=== PATIENT | female | born 1955 | race Hispanic/Latino ===

== ENCOUNTER → 2018-01-03 | Outpatient (CLI) | payer OTHER | END | disposition home or self-care (01) | LOC: RAH 13:49 | PROVIDERS: ATTEND Internal Medicine Cardiovascular Disease | DX: Z13.6 Encounter for screening for cardiovascular disorders (principal) | CPT/HCPCS: 75571 ==

== ENCOUNTER → 2018-01-18 | Outpatient (CLI) | payer BC ==
[~2018-01-18] MED LIST: REGADENOSON 0.4 MG/5 ML PF SYG IVP SCH
== END | disposition home or self-care (01) ==
LOC: SHCH 08:44
PROVIDERS: ATTEND Internal Medicine Cardiovascular Disease
DX: I10 Essential (primary) hypertension (principal)
CPT/HCPCS: 78452; 93017; 96374; A9500 ×2; J2785

== ENCOUNTER → 2018-10-18 | Outpatient (CLI) | payer BC | END | disposition home or self-care (01) | LOC: RAH 11:04 | PROVIDERS: ATTEND Family Medicine | DX: I77.1 Stricture of artery (principal); R20.8 Other disturbances of skin sensation | CPT/HCPCS: 93880 ==

== ENCOUNTER → 2022-04-11 | Outpatient (CLI) | payer OTHER | END | disposition home or self-care (01) | LOC: SHCH 09:58 | PROVIDERS: ATTEND Internal Medicine Cardiovascular Disease | DX: I07.1 Rheumatic tricuspid insufficiency (principal); R06.00 Dyspnea, unspecified; R07.9 Chest pain, unspecified | CPT/HCPCS: 93306 ==

== ENCOUNTER → 2022-04-11 | Outpatient (CLI) | payer OTHER ==
[2022-04-11 16:29] LABS: ALBUMIN 3.6 g/dL (3.5-5.0); POTASSIUM 3.8 mmol/L (3.5-5.1); TOTAL PROTEIN, SERUM 7.5 g/dL (6.0-8.3)
== END | disposition home or self-care (01) ==
LOC: LAB 13:46
PROVIDERS: ATTEND Internal Medicine Cardiovascular Disease
DX: I10 Essential (primary) hypertension (principal)
CPT/HCPCS: 36415; 80053

== ENCOUNTER → 2022-04-12 | Outpatient (CLI) | payer OTHER ==
[~2022-04-12] MED LIST changes: +IOHEXOL-350 50ML VIAL IV ONE; +METOPROLOL TARTRATE 1 MG/ML 5ML VIAL IV ONE; -REGADENOSON 0.4 MG/5 ML PF SYG IVP SCH
== END | disposition home or self-care (01) ==
LOC: RAH 08:29
PROVIDERS: ATTEND Internal Medicine Cardiovascular Disease
DX: M47.815 Spondylosis without myelopathy or radiculopathy, thoracolumbar region (principal); K44.9 Diaphragmatic hernia without obstruction or gangrene; R07.9 Chest pain, unspecified
CPT/HCPCS: 75574; J3490; Q9967

== ENCOUNTER 2022-09-13 13:09 | Emergency (ER) | payer OTHER ==
[~2022-09-13] VITALS: Ht 152.4 cm; Wt 79.4 kg
[2022-09-13 13:42] LABS: APPEARANCE,URINE CLEAR (CLEAR); BILIRUBIN,URINE NEGATIVE (NEGATIVE); COLOR,URINE LIGHT-YELLOW (YELLOW); GLUCOSE, URINE (UA) NEGATIVE (NEGATIVE); KETONES,URINE NEGATIVE (NEGATIVE); LEUKOCYTE ESTERASE ,URINE 25 Leu/uL (NEGATIVE); NITRATE,URINE NEGATIVE (NEGATIVE); PROTEIN,URINE NEGATIVE (NEGATIVE); UROBILINOGEN,URINE 0.2 mg/dL (0.2-1.0)
[2022-09-13 13:43] LABS: BASOPHILS % (AUTO) 0.3 % (0.0-5.0); EOSINOPHILS % (AUTO) 1.2 % (0.0-8.0); HEMATOCRIT 36.4 % (36-48); LYMPHOCYTES % (AUTO) 21.3 % (21.0-51.0); MEAN CORPUSCULAR HEMOGLOBIN 29.8 pg (27.0-33.0); MEAN CORPUSCULAR HGB CONC 33.8 g/dL (32.0-36.0); MEAN CORPUSCULAR VOLUME 88.1 fL (79-99); MONOCYTES % (AUTO) 5.2 % (3.0-13.0); NEUTROPHILS % (AUTO) 71.7 % (40.0-77.0); PLATELET COUNT (AUTO) 197 K/uL (130-400); RED BLOOD CELL COUNT(AUTO) 4.13 MIL/uL (4.00-5.50); RED CELL DISTRIBUTION WIDTH 12.5 % (11.0-15.5); WHITE BLOOD COUNT (AUTO) 5.7 K/uL (4.8-10.8)
[2022-09-13 13:46] LABS: MUCUS,URINE RARE LPF (None Seen); SQUAMOUS EPITHELIAL CELL,UR RARE /HPF (0-2)
[2022-09-13 13:51] LABS: CREATININE 0.9 mg/dL (0.5-1.5); POTASSIUM 4.4 mmol/L (3.5-5.1)
[2022-09-13 13:55] VITALS: BP 148/88; PULSE 63; RESP 24; O2SAT 99
[2022-09-13 13:56] LABS: ALBUMIN 3.5 g/dL (3.5-5.0); TOTAL PROTEIN, SERUM 7.3 g/dL (6.0-8.3)
[2022-09-13] MEDS ORDERED: ONDANSETRON 4MG INJ IVP ONE (14:00)
[2022-09-13] MEDS ORDERED: MORPHINE 4 MG SYG IVP ONE (14:00)
[2022-09-13] MEDS ORDERED: LACTATED RINGERS 1000ML 1,000 ML IV ONE (14:00)
[2022-09-13] MEDS ORDERED: CEFTRIAXONE 1G VIAL IVPB ONE (17:00)
[2022-09-13] MEDS ORDERED: HYDROMORPHONE 0.5 MG SYG (0.5MG/0.5ML) IVP ONE (17:00)
[2022-09-13] MEDS ORDERED: CEPH500T PO (17:56)
[2022-09-13] MEDS ORDERED: ONDA4TAB10 PO (18:02)
== END 2022-09-13 18:41 | disposition home or self-care (01) ==
LOC: EDH 13:09
DX: N39.0 Urinary tract infection, site not specified (principal); E78.00 Pure hypercholesterolemia, unspecified; I10 Essential (primary) hypertension; Z88.5 Allergy status to narcotic agent; Z88.8 Allergy status to other drugs, medicaments and biological substances; Z90.710 Acquired absence of both cervix and uterus
CPT/HCPCS: 99285; 74176; 96365; 96375; 80053; 85025; 81001; 36415; J7120; J0696; J2405; J2270; J1170

== ENCOUNTER → 2023-03-30 | Outpatient (CLI) | payer OTHER ==
[~2023-03-30] MED LIST changes: +CEPH500T PO; -IOHEXOL-350 50ML VIAL IV ONE; -METOPROLOL TARTRATE 1 MG/ML 5ML VIAL IV ONE; +ONDA4TAB10 PO
== END | disposition home or self-care (01) ==
LOC: SHCH 12:40
PROVIDERS: ATTEND Internal Medicine Cardiovascular Disease
DX: I73.9 Peripheral vascular disease, unspecified (principal)
CPT/HCPCS: 93925

== ENCOUNTER 2024-01-26 14:49 | Emergency (ER) | payer OTHER ==
[~2024-01-26] VITALS: Ht 157.5 cm; Wt 83.9 kg
[~2024-01-26 14:49] MED LIST changes: +ONDA-243 PO; -ONDA4TAB10 PO
--- NOTE | 2024-01-26 15:28 | NUR ---
BLADDER SCAN 372ML
--- NOTE | 2024-01-26 15:36 | EKG ---
[facility] Test Date: 2024-01-26 Test Time: 15:30:17 Pat Name: JONATHAN KASPER Department: ED Room: Gender: F Shoe Caser: [id number] : 1955 Requested By: MARBIN ZUNIGA Order Number: [id number] Reading MD: Roberto Steen Measurements Intervals [place] Rate: 68 P: 53 FL: 150 QRS: 47 QRSD: 87 T: 57 QT: 377 QTc: 400 Interpretive Statements Sinus rhythm Low voltage, precordial leads No previous ECG available for comparison Electronically Signed On 01-27-2024 17:42:24 WAREHOUSE REPRESENTATIVE by Roberto Steen Please click the below link to view image of tracing.
--- NOTE | 2024-01-26 15:39 | ERN ---
ED Note History of Present Illness Stated Complaint: LEG PAIN Chief Complaint: Lower Extremity Pain/Injury Time Seen by MD: 14:52 Dictation: This 68-year-old female presents in the emergency department complaining of generalized aches and pains and some concern regarding a possibility of sepsis either due to a tooth that has been bothering her or a urinary source. She has been bothered by pain in an upper premolar which has been cracked in his been painful. The dentist told her there was nothing wrong but she sees that it is red and it hurts when she pushes on it. In addition she reports lower abdominal discomfort and bloating and was told on Sunday that she might have a urinary tract infection by her PCP, no antibiotics were given pending studies that are going to be back next week. She reports that she has been very fatigued for a week or two and notices increase in multiple chronic pains including leg pains and back pains and neck pains. She does walk with a walker. There was no fever or chill, she has no nausea, vomiting or diarrhea. She denies dysuria, she is not short of breath or experiencing chest pain. There was no sore throat or nasal congestion. She does have a complex past medical history including hyperlipidemia, hypertension, and spinal stenosis with chronic leg weakness which was improved after physical therapy. She has no loss of sensation in the area of the bladder or rectum and reports no acute weakness in the legs relative to her baseline. 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 The patient is a , she lives with her daughter. She does not smoke, drink or use recreational drugs Allergies: Coded Allergies: celecoxib (Unverified Allergy, Severe, DOES NOT REMEMBER, 07/07/13) codeine (Unverified Allergy, Severe, ITCHING, 07/07/13) tramadol (Unverified Allergy, Unknown, ITCHING, 09/13/22) Home Meds Active Scripts Ondansetron (Ondansetron Odt) 4 Mg Tab.rapdis, 4 MG PO Q6HPRN PRN for nausea, # 12 TAB 0 Refills Prov:JOJO ESCALONA MD 09/13/22 Cephalexin (Cephalexin) 500 Mg Tablet, 500 MG PO BID, #8 TAB Start on 09/14/2022 Prov:JOJO ESCALONA MD 09/13/22 Past Medical History Past Medical History: High Cholesterol, Hypertension Additional Past Medical Hx: PITUATARY TUMOR Surgical History: Hysterectomy Surgical History Other: PITUATARY TUMOR REMOVED, CARPAL TUNNEL SX, BLADDER TUMOR REMOVED Social History: Negative RN Note Reviewed/Agreed w/PFSH: Yes Review of System Dictation All pertinent systems reviewed, negative except as documented in the HPI The ROS is obtained from patient GENERAL/CONSTITUTIONAL: Negative except as documented in HPI. ENT: Negative except as documented in HPI. CARDIOVASCULAR: Negative except as documented in HPI. RESPIRATORY: Negative except as documented in HPI. GASTROINTESTINAL: Negative except as documented in HPI. GENITOURINARY: Negative except as documented in HPI. MUSCULOSKELETAL: Negative except as documented in HPI. SKIN: Negative except as documented in HPI. NEUROLOGIC: Negative except as documented in HPI. Initial Vital Sign VS Vital Signs Date Time Temp Pulse Resp B/P (MAP) Pulse Ox O2 Delivery O2 Flow Rate FiO2 01/26/24 14:51 98.8 99 18 110/85 99 01/26/24 16:16 Room Air* 0 21 Physical Exam Dictation VITAL SIGNS: note is made of triage vital signs CONSTITUTIONAL: This is a very anxious, somewhat pale patient who is awake, alert, and appropriately interactive. HEAD: Normocephalic, Atraumatic. EYES: Periorbital areas with no swelling, redness, or edema. Lids and lashes are normal. Conjunctival injection is absent. Sclera anicteric. Pupils equal, round, reactive to light. ENT: No nasal discharge noted. Posterior pharynx is without exudate, redness, swelling, masses, or evidence of obstruction. Uvula midline. Mucous membranes moist. There is a little bit of redness over the gingival mucosa in the left upper premolar area without an obvious abscess or significant swelling NECK: Trachea midline, no masses palpated, and no cervical lymphadenopathy. No swelling. Supple, full range of motion without nuchal rigidity. No vertebral point tenderness. No meningismus. CHEST/AXILLA: Normal chest wall appearance and motion. No tenderness. No crepitus. CV: Normal rate, regular rhythm. No murmur. No edema. RESPIRATORY:Respiratory rate is normal. Bilateral equal breath sounds with good airflow. Normal breath sounds are noted. No rales, rhonchi or wheezes noted. No increased work of breathing, no retractions. ABDOMEN: Inspection normal. No distention is appreciated. Bowel sounds are normal. No mass or organomegaly is appreciated. There is very mild suprapubic tenderness. No rebound. No rigidity. No voluntary or involuntary guarding. BACK: Inspection is normal. No midline tenderness is appreciated. The patient appears comfortable when moving. : No CVA tenderness or bladder tenderness. SKIN: Warm, dry, with normal turgor. Capillary refill less than 3 seconds. Normal color.No rash. No cellulitis or abscess. No evidence of acute injury. MS/Extremity: There is no calf tenderness. Baseline range of motion is noted in all 4 extremities. There are no deformities. NEURO: Awake and alert, lucid. Facies symmetric and speech is clear. Motor strength is reported by the patient to be at baseline as is sensation. PSYCH: Patient is anxious but appropriately attentive and cooperative without evidence of hallucination. Results (Laboratory/Radiology) Laboratory/Radiology Laboratory Tests Test 01/26/24 15:25 01/26/24 15:42 Urine Color LIGHT-YELLOW (YELLOW) Urine Appearance CLEAR (CLEAR) Urine pH 6.0 (5.0-8.0) Urine Specific [place] 1.018 (1.001-1.031) Urine Protein NEGATIVE mg/dL (NEGATIVE) Urine Glucose (UA) NEGATIVE mg/dL (NEGATIVE) Urine Ketones NEGATIVE mg/dL (NEGATIVE) Urine Occult Blood +- (TRACE) (NEGATIVE) H Urine Nitrate NEGATIVE (NEGATIVE) Urine Bilirubin NEGATIVE mg/dL (NEGATIVE) Urine Urobilinogen 0.2 mg/dL (0.2-1.0) Urine Leukocyte Esterase 25 Azeb/uL (NEGATIVE) H Urine RBC 2-5 /HPF (0-1) H Urine WBC 2-5 /HPF (0-1) H Urine Squamous Epithelial Cells MOD /HPF (0-2) Urine Bacteria RARE /HPF (None Seen) White Blood Count 7.9 K/uL (4.8-10.8) Red Blood Count 3.69 MIL/uL (4.00-5.50) L Hemoglobin 11.2 g/dL (12.0-16.0) L Hematocrit 33.6 % (36-48) L Mean Corpuscular Volume 91.1 fL (79-99) Mean Corpuscular Hemoglobin 30.4 pg (27.0-33.0) Mean Corpuscular Hemoglobin Concent 33.3 g/dL (32.0-36.0) Red Cell Distribution Width 12.7 % (11.0-15.5) Platelet Count 192 K/uL (130-400) Mean Platelet Volume 8.7 fL (7.5-10.5) Immature Granulocyte % (Auto) 0.5 % (0-1) Neutrophils (%) (Auto) 77.9 % (40.0-77.0) H Lymphocytes (%) (Auto) 15.5 % (21.0-51.0) L Monocytes (%) (Auto) 4.7 % (3.0-13.0) Eosinophils (%) (Auto) 1.1 % (0.0-8.0) Basophils (%) (Auto) 0.3 % (0.0-5.0) Neutrophils # (Auto) 6.1 K/uL (1.8-7.7) Lymphocytes # (Auto) 1.2 K/uL (1.0-4.8) Monocytes # (Auto) 0.4 K/uL (0.1-1.0) Eosinophils # (Auto) 0.09 K/uL (0.00-0.70) Basophils # (Auto) 0.02 K/uL (0.00-0.20) Absolute Immature Granulocyte (auto 0.04 K/uL (0-1) Nucleated Red Blood Cells 0.0 % (0.0-0.19) Sodium Level 147 mmol/L (136-145) H Potassium Level 3.9 mmol/L (3.5-5.1) Chloride Level 112 mmol/L (101-111) H Carbon Dioxide Level 30 mmol/L (21-32) Blood Urea Nitrogen 35 mg/dL (7-18) H Creatinine 1.2 mg/dL (0.5-1.0) H Glomerular Filtration Rate Calc 49 mL/min (>90) Random Glucose 111 mg/dL (70-105) H Lactic Acid Level 1.3 mmol/L (0.8-2.5) Total Calcium 8.8 mg/dL (8.5-10.1) Labs Reviewed?: Yes EKG Comment: Time reviewed: 1535 EKG number; 1 Rate and rhythm: Sinus rhythm at 68 beats per minute Heber:normal Morphology:Normal TN interval: normal QT interval: normal ST/Twaves: normal Impression: normal sinus rhythm without STEMI or ectopy Comparison EKG: none EKG INTERPRETATION by Dr. Marbin Zuniga ED Course ED Course Orders Procedure Category Date Status Time 12 Lead Ekg Tracing- EKG 01/26/24 Complete Technical 15:23 Cbc With Differential LAB 01/26/24 Complete 15:23 Urinalysis Profile LAB 01/26/24 Complete 15:23 Lactic Acid LAB 01/26/24 Complete 15:23 Basic Metabolic Panel LAB 01/26/24 Complete 15:23 Bladder Scan CPOE 01/26/24 Transmitted 15:23 Nurse Driven Bush ADILIA 01/26/24 In Process Removal Pro 15:26 0.9% Nacl 500ml PHA 01/26/24 Complete Iv.Soln (Ns 500ml 16:30 Morphine 2mg Syg PHA 01/26/24 Complete (Morphine 2mg Syg) 16:30 Current Medications Medications (Trade) Dose Ordered Sig/Kelsea Route PRN Reason Start Time Stop Time Status Last Admin Dose Admin Morphine Sulfate (morPHINE 2MG SYG) 2 mg ONCE ONCE IVP 01/26/24 16:30 01/26/24 16:31 DC Sodium Chloride 500 ml @ 0 mls/hr ONCE ONCE IV 01/26/24 16:30 01/26/24 16:31 DC Vital Signs Date Time Temp Pulse Resp B/P (MAP) Pulse Ox O2 Delivery O2 Flow Rate FiO2 01/26/24 16:16 98.2 79 18 115/52 99 Room Air* 0 21 01/26/24 14:51 98.8 99 18 110/85 99 Medical Decision Making MDM INITIAL IMPRESSION Initial history and physical concerning for urinary tract infection, possible urinary retention given her history of lower abdominal bloating and discomfort. She may have a mild gingivitis. Clinically she does not appear septic. In an elderly patient with report of recent fatigue we will screen with the EKG and laboratories Contributing medical problems: Hypertension and hyperlipidemia as well as other medical problems including spinal stenosis I have reviewed the triage nursing notes and vital signs. The patient is afebrile with acceptable oxygen saturation, heart rate and blood pressure. Initial plan: Laboratory screening DATA REVIEW I have reviewed additional NN, repeat VS, and monitoring where indicated. Heart rate, blood pressure, and O2 saturation are acceptable. [place] diagnostic results: A bladder scan showed 375 cc of urine after the patient voided Lab work includes a BUN of 35 with a creatinine of 1.2, glucose of 111. Sodium of 147. White count is 7.9 with 77% segs. Lactic acid is normal Other independent historian: none Review of external data: Previous laboratories from a visit in August of 2022 were unremarkable. At that time she was having left flank pain and had a negative evaluation was treated for presumptive UTI ED COURSE Interventions: Patient had a Bush catheter placed with 400 cc of urine return. She was hydrated with 500 cc of NS for dehydration demonstrated on the laboratories with hypernatremia and prerenal azotemia Reassessment: The patient is more comfortable after treatment. I discussed her findings with her and she reported to me that she had previously been followed by Dr. Jefferson who has left the area for known urinary retention although she had not required Bush catheter. She was supposed to follow up with him this fall however he has left the area and she has not seen a urologist for this problem since the testing earlier this year In addition I re-questioned her regarding bowel and bladder function and sensation. She has no new weakness, numbness or tingling in the lower extrem ities and no change in bowel or bladder function that she is aware of. She was distinctly aware of Bush catheter placement. She has had Bush catheters in the past due to the bladder surgery DISPOSITION Final diagnostic impression: Gingivitis, urinary retention I discussed my findings, clinical impression and treatment recommendations with the patient. I have reviewed the social factors contributing to the patient's presentation and disposition planning. My final plan for disposition was made based upon clinical findings, response to treatment and discussion with the patient regarding management options. Hospitalization is not indicated due to low risk of short term progression, complication, morbidity or mortality related to the current diagnosis At the time of discharge, the vital signs are within acceptable limits. Repeat examination: Alert, nontoxic no abdominal tenderness Patient has been able to take oral liquids. The discharge treatment plan includes Bush catheter care I discussed the importance of follow up with a different urologist or with the char belt operator and encouraged her to discuss this with her PCP this week Incidental findings discussed: Dehydration Questions were invited and answered in layman's terms. I have emphasized my follow-up recommendations and reviewed ED return precautions. I have answered any questions in layman's terms. The patient understands that they will have to arrange for out-patient follow-up for recheck of today's condition. The patient is stable and appropriate for discharge from the ED. This dictation was prepared using [employer] voice recognition software. Occasional voice recognition errors may occur. When identified, these errors have been corrected. While every attempt is made to correct errors during dictation, errors may still exist. DX & DISP Disposition: Discharge Decision to Admit Date: Jan 26, 2024 Decision to Admit Time: 16:41 Departure Impression: Primary Impression: Urinary retention Additional Impressions: Dehydration, Gingivitis Condition: Stable Scripts Amoxicillin (Amoxicillin) 500 Mg Capsule 500 MG PO BID, #20 CAP 0 Refills Prov: MARBIN ZUNIGA MD 01/26/24 Additional Instructions: Bush catheter care instructions. Take the amoxicillin 2 times a day until it is gone. Follow up with a dentist. Take your laboratories and follow up with your primary care physician in the next 72 hours. Return to the emergency department for high fevers, vomiting, or other worsening. Increase your fluid intake as you have become dehydrated. Have your primary care physician refer you to another urologist or to a char belt operator for further management of urinary retention Referrals: LACEY NUNEZ M.D. (PCP) Time of Disposition: 16:44 MARBIN ZUNIGA MD Jan 26, 2024 15:39
[2024-01-26 15:45] LABS: APPEARANCE,URINE CLEAR (CLEAR); BILIRUBIN,URINE NEGATIVE (NEGATIVE); COLOR,URINE LIGHT-YELLOW (YELLOW); GLUCOSE, URINE (UA) NEGATIVE (NEGATIVE); KETONES,URINE NEGATIVE (NEGATIVE); LEUKOCYTE ESTERASE ,URINE 25 Leu/uL (NEGATIVE); NITRATE,URINE NEGATIVE (NEGATIVE); PROTEIN,URINE NEGATIVE (NEGATIVE); UROBILINOGEN,URINE 0.2 mg/dL (0.2-1.0)
[2024-01-26 15:46] LABS: ADD UA MICROSCOPIC YES
[2024-01-26 15:47] LABS: BACTERIA,URINE RARE /HPF (None Seen); MUCUS,URINE RARE LPF (None Seen); SQUAMOUS EPITHELIAL CELL,UR MOD /HPF (0-2)
[2024-01-26 15:50] LABS: BASOPHILS # (AUTO) 0.02 K/uL (0.00-0.20); BASOPHILS % (AUTO) 0.3 % (0.0-5.0); EOSINOPHILS # (AUTO) 0.09 K/uL (0.00-0.70); EOSINOPHILS % (AUTO) 1.1 % (0.0-8.0); HEMATOCRIT 33.6 % (36-48); IMMATURE GRANULOCYTE ABSOLUTE 0.04 K/uL (0-1); LYMPHOCYTES # (AUTO) 1.2 K/uL (1.0-4.8); LYMPHOCYTES % (AUTO) 15.5 % (21.0-51.0); MEAN CORPUSCULAR HEMOGLOBIN 30.4 pg (27.0-33.0); MEAN CORPUSCULAR HGB CONC 33.3 g/dL (32.0-36.0); MEAN CORPUSCULAR VOLUME 91.1 fL (79-99); MONOCYTES # (AUTO) 0.4 K/uL (0.1-1.0); MONOCYTES % (AUTO) 4.7 % (3.0-13.0); NEUTROPHILS # (AUTO) 6.1 K/uL (1.8-7.7); NEUTROPHILS % (AUTO) 77.9 % (40.0-77.0); PLATELET COUNT (AUTO) 192 K/uL (130-400); RED BLOOD CELL COUNT(AUTO) 3.69 MIL/uL (4.00-5.50); RED CELL DISTRIBUTION WIDTH 12.7 % (11.0-15.5); WHITE BLOOD COUNT (AUTO) 7.9 K/uL (4.8-10.8)
[2024-01-26 15:59] LABS: CREATININE 1.2 mg/dL (0.5-1.0); POTASSIUM 3.9 mmol/L (3.5-5.1)
[2024-01-26] MEDS: 0.9% NACL 500ML IV.SOLN 500 ML IV ONE (16:34)
[2024-01-26] MEDS: morPHINE 2 MG SYG IVP ONE (16:35)
[2024-01-26] MEDS ORDERED: AMOX500C2 PO (16:42)
[2024-01-26] MEDS: AMOXICILLIN 500 MG CAPSULE PO ONE (16:52)
[2024-01-26 17:51] VITALS: BP 111/50; PULSE 75; RESP 18; TEMP 98.2; O2SAT 99
--- NOTE | 2024-01-26 18:06 | NUR ---
arshad bag placed on pt
== END 2024-01-26 18:06 | disposition home or self-care (01) ==
LOC: EDH 14:49
DX: R33.9 Retention of urine, unspecified (principal); E86.0 Dehydration; K05.10 Chronic gingivitis, plaque induced; E78.00 Pure hypercholesterolemia, unspecified; I10 Essential (primary) hypertension; Z88.5 Allergy status to narcotic agent; Z90.710 Acquired absence of both cervix and uterus
CPT/HCPCS: 99284; 96374; 80048; 85025; 83605; 81001; 36415; 51702; 93005; J7040; J2270

== ENCOUNTER 2024-01-29 12:56 | Emergency (ER) | payer OTHER ==
[~2024-01-29] VITALS: Ht 152.4 cm; Wt 83.9 kg
[~2024-01-29 12:56] MED LIST changes: +AMOX500C2 PO
--- NOTE | 2024-01-29 13:04 | ERN ---
General Chief Complaint: Blood in Urine: Stated Complaint: BLOOD IN URINE Time Seen by MD: 12:58 Source: patient History of Present Illness Initial Comments Patient is a 68-year-old female coming in to be evaluated for bloody urine. Per patient this has been ongoing for one day. Patient does have an indwelling Veliz. No fever or chills. Allergies: Coded Allergies: celecoxib (Unverified Allergy, Severe, DOES NOT REMEMBER, 07/07/13) codeine (Unverified Allergy, Severe, ITCHING, 07/07/13) tramadol (Unverified Allergy, Unknown, ITCHING, 09/13/22) Home Meds Active Scripts Amoxicillin (Amoxicillin) 500 Mg Capsule, 500 MG PO BID, #20 CAP 0 Refills Prov:MARBIN ZUNIGA MD 01/26/24 Ondansetron (Ondansetron Odt) 4 Mg Tab.rapdis, 4 MG PO Q6HPRN PRN for nausea, #12 TAB 0 Refills Prov:JOJO ESCALONA MD 09/13/22 Cephalexin (Cephalexin) 500 Mg Tablet, 500 MG PO BID, #8 TAB Start on 09/14/2022 Prov:JOJO ESCALONA MD 09/13/22 Past Medical History Past Medical History: High Cholesterol, Hypertension Medical History Other: PITUATARY TUMOR Past Surgical History: Hysterectomy Surgical History Other: PITUATARY TUMOR REMOVED, CARPAL TUNNEL SX, BLADDER TUMOR REMOVED Social History Social History: Negative ROS Dictation CONSTITUTIONAL: No chills, no fever, no weakness, no diaphoresis, no malaise. HEAD/FACE: No signs of trauma. EENT: No eye pain, no blurred vision, no tearing, no double vision, no ear pain, no ear discharge, no nose pain, no nasal congestion, no throat pain, no throat swelling, no mouth pain. RESPIRATORY: No cough, no orthopnea, no SOB, no stridor, no wheezing. CARDIOVASCULAR: No chest pain, no edema, no palpitations, no syncope. GASTROINTESTINAL/ABDOMINAL: No abdominal pain, no constipation, no diarrhea, no nausea, no vomiting. GENITOURINARY: No abnormal discharge, no dysuria, no frequent urination, no hematuria. No complaints of pain in the genitals. MUSCULOSKELETAL: No back pain, no gout, no joint pain, no joint swelling, no muscle pain, no muscle stiffness, no neck pain. INTEGUMENTARY: No change in color, no change in hair/nails, no dryness, no lesion, no lumps, no rash. NEUROLOGICAL/PSYCH: No anxiety, not depressed, no emotional problem, no headache, no numbness, no pre-existing deficit, no history of seizures, no tremors, no weakness. HEMATOLOGIC/LYMPHATIC: Not anemic, no history of blood clots, no apparent bleeding, no bruising, glands not swollen. All Systems Negative, Except as Noted. Physical Exam Physical Exam Dictation VITAL SIGNS: Reviewed. GENERAL APPEARANCE: Alert, oriented x3, no acute distress, obese. HEAD AND FACE: Non-traumatic. EYES: PERRL, pink conjunctivas, eyelid no trauma, anterior chamber clear. EARS: Pinnas intact and no signs of trauma or erythema. Ear canals clear and no discharge. TMs no erythema. NOSE: No discharge, no bleeding. OROPHARYNX: Mouth normal, teeth no caries, tongue pink. Pharynx clear, no erythema. Tonsils no exudates, no abscesses noted. Mucous membrane moist. NECK: Supple, non-tender, no thyromegaly, no masses, no JVD, no bruits. BREAST: Deferred. CHEST: No tenderness, no crepitus, no paradoxical movement, no retractions. LUNGS: Clear, well-ventilated, symmetric, no rales, no wheezing, no rhonchi, no stridor, good breath sounds bilaterally. HEART: Regular rate, regular rhythm, no murmur, no gallops. VASCULAR: No peripheral edema. ABDOMEN: Soft, positive bowel sounds, nondistended, no guarding, nontender, no rebound, no masses no hepatomegaly, no splenomegaly, no Bertrand's sign, no hernias. RECTAL: Deferred. GENITAL: Deferred. NEUROLOGICAL: Normal speech, gross motor function intact, gross sensory function intact. MUSCULOSKELETAL: Neck nontender, full range of motion, back nontender, full range of motion. EXTREMITIES: Nontender, full range of motion. SKIN: Color pink, dry, no turgor, no rash, no lacerations, no abrasions, no contusions. LYMPHATICS: Deferred. Results Laboratory and Microbiology Lab and Micro Result Laboratory Tests Test 01/29/24 13:37 01/29/24 14:40 White Blood Count 7.5 K/uL (4.8-10.8) Red Blood Count 3.72 MIL/uL (4.00-5.50) L Hemoglobin 11.3 g/dL (12.0-16.0) L Hematocrit 34.1 % (36-48) L Mean Corpuscular Volume 91.7 fL (79-99) Mean Corpuscular Hemoglobin 30.4 pg (27.0-33.0) Mean Corpuscular Hemoglobin Concent 33.1 g/dL (32.0-36.0) Red Cell Distribution Width 12.7 % (11.0-15.5) Platelet Count 194 K/uL (130-400) Mean Platelet Volume 9.2 fL (7.5-10.5) Immature Granulocyte % (Auto) 0.4 % (0-1) Neutrophils (%) (Auto) 81.6 % (40.0-77.0) H Lymphocytes (%) (Auto) 11.2 % (21.0-51.0) L Monocytes (%) (Auto) 5.2 % (3.0-13.0) Eosinophils (%) (Auto) 1.3 % (0.0-8.0) Basophils (%) (Auto) 0.3 % (0.0-5.0) Neutrophils # (Auto) 6.2 K/uL (1.8-7.7) Lymphocytes # (Auto) 0.8 K/uL (1.0-4.8) L Monocytes # (Auto) 0.4 K/uL (0.1-1.0) Eosinophils # (Auto) 0.10 K/uL (0.00-0.70) Basophils # (Auto) 0.02 K/uL (0.00-0.20) Absolute Immature Granulocyte (auto 0.03 K/uL (0-1) Nucleated Red Blood Cells 0.0 % (0.0-0.19) Sodium Level 140 mmol/L (136-145) Potassium Level 3.8 mmol/L (3.5-5.1) Chloride Level 108 mmol/L (101-111) Carbon Dioxide Level 29 mmol/L (21-32) Blood Urea Nitrogen 28 mg/dL (7-18) H Creatinine 0.9 mg/dL (0.5-1.0) Glomerular Filtration Rate Calc 69 mL/min (>90) Random Glucose 101 mg/dL (70-105) Total Calcium 9.1 mg/dL (8.5-10.1) Urine Color DARK-BROWN (YELLOW) Urine Appearance TURBID (CLEAR) Urine pH 8.0 (5.0-8.0) Urine Specific [place] 1.017 (1.001-1.031) Urine Protein 300 mg/dL (NEGATIVE) H Urine Glucose (UA) NEGATIVE mg/dL (NEGATIVE) Urine Ketones NEGATIVE mg/dL (NEGATIVE) Urine Occult Blood LARGE (NEGATIVE) H Urine Nitrate NEGATIVE (NEGATIVE) Urine Bilirubin NEGATIVE mg/dL (NEGATIVE) Urine Urobilinogen 0.2 mg/dL (0.2-1.0) Urine Leukocyte Esterase 500 Azeb/uL (NEGATIVE) H Urine RBC TNTC /HPF (0-1) H Urine WBC 6-10 /HPF (0-1) H Urine Triple Phosphate Crystals FEW /LPF (None Seen) Urine Other Crystals (Auto) 14 /HPF (None Seen) Urine Bacteria RARE /HPF (None Seen) Labs Reviewed?: Yes MDM MDM: Differential diagnosis:, UTI, HEMATURIA PATIENT PRESENTS TO THE EMERGENCY ROOM COMPLAINING OF HEMATURIA. PATIENT HAS A AN INDWELLING VELIZ CATHETER. UPON EVALUATION THERE WAS BLOOD IN THE VELIZ BAG. BLADDER WAS IRRIGATED AND CLOTS WERE REMOVED, CLEAR URINE WAS SEEN. PATIENT WILL BE DISCHARGED WITH A DIAGNOSIS OF HEMATURIA WITH UTI. PATIENT WAS PLACED ON ANTIBIOTICS ON HER PREVIOUS VISIT I ADVISED HER CONTINUING TO TAKE HER ANTIBIOTICS AND FOLLOW UP ACCORDINGLY WITH THE PCP. ED Course Orders Procedure Category Date Status Time Cbc With Differential LAB 01/29/24 Complete 13:02 Basic Metabolic Panel LAB 01/29/24 Complete 13:02 Urinalysis LAB 01/29/24 Complete W/Microscopic 13:02 Culture Urine YVONNE 01/29/24 In Process 15:10 Vital Signs Date Time Temp Pulse Resp B/P (MAP) Pulse Ox O2 Delivery O2 Flow Rate FiO2 01/29/24 14:46 98.1 78 16 130/79 96 Room Air* 0 21 01/29/24 12:57 97.9 96 20 120/77 99 Room Air 0 DX & DISP Disposition: Discharge Departure Impression: Primary Impression: UTI (urinary tract infection) Additional Impression: Veliz catheter in place Condition: Stable Additional Instructions: FOLLOW-UP WITH PRIMARY CARE PROVIDER IN 1 TO 2 DAYS. TAKE MEDICATIONS DIREC RENE HERE IN THE EMERGENCY ROOM. OKAY TO CONTINUE HOME MEDICATIONS UNLESS OTHERWISE DISCUSSED DURING YOUR VISIT IN THE EMERGENCY ROOM TODAY. RETURN TO YOUR NEAREST EMERGENCY ROOM IF SYMPTOMS WORSEN OR IF THERE IS NO IMPROVEMENT. CALL 911 IF YOU NEED IMMEDIATE ASSISTANCE. TAKE TYLENOL [id number] NEEDED AND IF NO CONTRAINDICATIONS ARE PRESENT. INCREASE ORAL HYDRATION. A WOUND CULTURE OR URINE CULTURE WAS ORDERED HERE IN THE EMERGENCY ROOM DEPARTMENT PLEASE FOLLOW-UP WITH PRIMARY CARE PROVIDER AND ADVISE THEM TO GET REPEAT PORTS FROM OUR FACILITY. IF YOU HAD ANY ARA WRAP/SPLINTS THAT WERE APPLIED HERE, PLEASE DO NOT REMOVE THEM UNTIL YOU SEE YOUR PRIMARY CARE OR SPECIALTY. REFERRALS: Referrals: LACEY NUNEZ M.D. (PCP) Time of Disposition: 16:18 MO HENRY MD Jan 29, 2024 13:03
[2024-01-29 13:45] LABS: BASOPHILS # (AUTO) 0.02 K/uL (0.00-0.20); BASOPHILS % (AUTO) 0.3 % (0.0-5.0); EOSINOPHILS % (AUTO) 1.3 % (0.0-8.0); HEMATOCRIT 34.1 % (36-48); IMMATURE GRANULOCYTE ABSOLUTE 0.03 K/uL (0-1); LYMPHOCYTES # (AUTO) 0.8 K/uL (1.0-4.8); LYMPHOCYTES % (AUTO) 11.2 % (21.0-51.0); MEAN CORPUSCULAR HEMOGLOBIN 30.4 pg (27.0-33.0); MEAN CORPUSCULAR HGB CONC 33.1 g/dL (32.0-36.0); MEAN CORPUSCULAR VOLUME 91.7 fL (79-99); MONOCYTES # (AUTO) 0.4 K/uL (0.1-1.0); MONOCYTES % (AUTO) 5.2 % (3.0-13.0); NEUTROPHILS # (AUTO) 6.2 K/uL (1.8-7.7); NEUTROPHILS % (AUTO) 81.6 % (40.0-77.0); PLATELET COUNT (AUTO) 194 K/uL (130-400); RED BLOOD CELL COUNT(AUTO) 3.72 MIL/uL (4.00-5.50); RED CELL DISTRIBUTION WIDTH 12.7 % (11.0-15.5); WHITE BLOOD COUNT (AUTO) 7.5 K/uL (4.8-10.8)
[2024-01-29 13:54] LABS: CREATININE 0.9 mg/dL (0.5-1.0); POTASSIUM 3.8 mmol/L (3.5-5.1)
[2024-01-29 15:06] LABS: APPEARANCE,URINE TURBID (CLEAR); BACTERIA,URINE RARE /HPF (None Seen); BILIRUBIN,URINE NEGATIVE (NEGATIVE); COLOR,URINE DARK-BROWN (YELLOW); GLUCOSE, URINE (UA) NEGATIVE (NEGATIVE); KETONES,URINE NEGATIVE (NEGATIVE); LEUKOCYTE ESTERASE ,URINE 500 Leu/uL (NEGATIVE); NITRATE,URINE NEGATIVE (NEGATIVE); OCCULT BLOOD,URINE LARGE (NEGATIVE); PROTEIN,URINE 300 mg/dL (NEGATIVE); RBC,URINE TNTC /HPF (0-1); TRIPLE PHOSPHATE CRYSTAL,UR FEW /LPF (None Seen); UNCLASSIFIED CRYSTAL 14 /HPF (None Seen); UROBILINOGEN,URINE 0.2 mg/dL (0.2-1.0)
[2024-01-29 16:18] VITALS: BP 119/77; PULSE 73; RESP 16; TEMP 98.1; O2SAT 99
--- NOTE | 2024-01-29 16:30 | NUR ---
PT AAOX4, STABLE NO DISTRESS VITALS WNL, PT GIVEN INSTRUCTIONS FOR HOME. PT IV D/C CATHETER INTACT. PT PICKED UP DRIVEN HOME BY HER FRIEND.
== END 2024-01-29 16:42 | disposition home or self-care (01) ==
LOC: EDH 12:56
DX: N39.0 Urinary tract infection, site not specified (principal); E78.00 Pure hypercholesterolemia, unspecified; I10 Essential (primary) hypertension; Z88.5 Allergy status to narcotic agent; Z90.710 Acquired absence of both cervix and uterus; Z96.0 Presence of urogenital implants
CPT/HCPCS: 36415; 80048; 81001; 85025; 87086; 87186; 99284

== ENCOUNTER → 2024-04-17 | Outpatient (CLI) | payer OTHER ==
--- NOTE | 2024-04-21 13:20 | HMCSR ---
APPROVED REPORT EXAM: Two-dimensional and M-mode echocardiogram with Doppler and color Doppler. INDICATION ICD: R06.02 Shortness of breath 2D Dimensions RVDd3.4 cmLVEF(%)53.6 (>50%)LVED Vol(simp.)82.0 mL IVSd1.1 (0.7-1.1cm)FS(%)27 %LVES Vol(simp.)37.0 mL LVDd4.5 (3.8-5.6cm)Ao Root(2D)2.7 (2.0-3.7cm)LVEF(%, simp.)55 % PWd1.0 (0.7-1.1cm)LVOT diam2.0 (1.8-2.4cm)LA ESV INDEX (BP)22.06 mL/m2 LVDs3.3 (2.5-4.0cm)IVC diam1.3 cm Aortic Valve AoV Vmax1.6 m/Deion Peak GR10.7 mmHgLVOT Vmax1.0 m/s AoV VTI0.3 mAo Mean GR5.9 mmHgLVOT VTI0.21 m BETSY (VMAX)2.0 cm2AVA (VTI) 2.0 cm2 Mitral Valve MV E Vmax69.8 cm/sDECEL Sqly413 ms MV A Vmax83.3 cm/sP 1/2 T70 ms E/A ratio0.8MVA (PHT)3.2 cm2 MR Max PG81 mmHg TDI E/E' Medial6.8E/E' Lateral7.1 Pulmonary Valve PV Vmax1.0 m/sPV VTI0.19 mPV Mean GR2 mmHg PV Peak GR3.8 mmHg Tricuspid Valve TR Vmax2.2 m/sRAP (EST) 3 rpIvPOSC85.8 mmHg TR Peak GR18.8 mmHg Left Ventricle Left ventricular cavity size is normal. There is borderline left ventricular hypertrophy. LVEF is 50- 55%. No left ventricle thrombus noted on this study. Grade 1 diastolic dysfunction Right Ventricle The right ventricle is normal size. The right ventricular systolic function is normal. Atria The left atrium size is normal. The right atrium is borderline dilated. Aortic Valve Aortic valve is trileaflet. Aortic valve leaflets are sclerotic but open well. No aortic regurgitatio n is present. There is no aortic valvular stenosis. Mitral Valve Mitral valve leaflets are mildly sclerotic but open well. Mitral annular calcification is borderline. Mitral regurgitation is trace. There is no mitral valve stenosis. Tricuspid Valve The tricuspid valve leaflets appear normal. There is trace tricuspid regurgitation. Pulmonic Valve Pulmonic valve is not well visualized. There is trace pulmonic valvular regurgitation. Great Vessels The aortic root is normal in size. The IVC is normal in size and collapses >50% with inspiration. Pericardium No pericardial effusion. Conclusion Left ventricular cavity size is normal. There is borderline left ventricular hypertrophy. LVEF is 50-55%. Grade 1 diastolic dysfunction The right ventricle is normal size. The left atrium size is normal. Aortic valve is trileaflet. Aortic valve leaflets are sclerotic but open well. No aortic regurgitation is present. Mitral valve leaflets are mildly sclerotic but open well. Mitral annular calcification is borderline. Mitral regurgitation is trace. There is trace tricuspid regurgitation. The aortic root is normal in size. The IVC is normal in size and collapses >50% with inspiration. No pericardial effusion.
== END | disposition home or self-care (01) ==
LOC: SHCH 13:24
PROVIDERS: ATTEND Internal Medicine Cardiovascular Disease
DX: I08.0 Rheumatic disorders of both mitral and aortic valves (principal)
CPT/HCPCS: 93306

== ENCOUNTER → 2025-01-05 | Outpatient (CLI) | payer OTHER ==
[2025-01-05 22:42] VITALS: PULSE 72; RESP 15
[2025-01-05 23:00] VITALS: PULSE 68; RESP 12
[2025-01-05 23:32] VITALS: PULSE 67; RESP 18
[2025-01-05 23:55] VITALS: PULSE 65; RESP 15
[2025-01-06] VITALS (19 sets, daily range): PULSE 56–84; RESP 10–35
== END | disposition home or self-care (01) ==
LOC: SLP 20:40
PROVIDERS: ATTEND Internal Medicine Cardiovascular Disease
DX: G47.33 Obstructive sleep apnea (adult) (pediatric) (principal)
CPT/HCPCS: 95811